=== PATIENT | female | born 1940 | race Caucasian/White ===

== ENCOUNTER 2017-03-24 14:31 | Emergency (ER) | payer MEDICARE ==
[2017-03-24] MEDS ORDERED: Tylenol #3 Tablet PO ONE (16:38)
[2017-03-24] MEDS ORDERED: Tylenol #3 Tablet ONE (16:43)
--- NOTE | 2017-03-24 16:49 | ERPHSYRPT ---
- History of Present Illness Time Seen by Provider: 03/24/17 16:30 Source: patient Exam Limitations: clinical condition Patient Subjective Stated Complaint: shoulder pain in left shoulder Triage Nursing Assessment: patient states she woke up two days ago with mild shoulder pain this morning it had doubled and she doesnt remember a fall of any kind. no abnormalities noted patient able to move left arm and pulses present bilateral upper extremities Physician History: PATIENT WITH HISTORY OF DEPRESSION AND TYPE 2 DIABETES COMPLAINS OF LEFT SHOULDER PAIN FOR 24 HOURS, WORSE UPON RANGE OF MOTION. DENIES TRAUMA OR INJURY. Occurred: yesterday Method of Injury: unknown Quality: constant Severity of Pain-Max: moderate Severity of Pain-Current: moderate Extremities Pain Location: shoulder: left Modifying Factors: Improves With: movement Associated Symptoms: none Allergies/Adverse Reactions: codeine Allergy (Verified 03/24/17 16:44) Sulfa (Sulfonamide Antibiotics) Allergy (Verified 06/29/16 03:39) Home Medications: Gabapentin 100 mg PO TID 03/24/17 [History] Metformin HCl 500 mg [Glucophage 500 MG] 500 mg PO 03/24/17 [History] Olanzapine Odt 5 mg [Zyprexa Zydis 5 MG] 5 mg PO HS 03/24/17 [History] Hx Tetanus, Diphtheria Vaccination/Date Given: Yes Hx Influenza Vaccination/Date Given: Yes Hx Pneumococcal Vaccination/Date Given: Yes Immunizations Up to Date: Yes - Review of Systems Constitutional: No Fever, No Chills Eyes: No Symptoms Ears, Nose, & Throat: No Symptoms Respiratory: No Symptoms, No Cough, No Dyspnea Cardiac: No Symptoms, No Chest Pain, No Edema, No Syncope Abdominal/Gastrointestinal: No Abdominal Pain, No Nausea, No Vomiting, No Diarrhea Genitourinary Symptoms: No Dysuria Musculoskeletal: Joint Pain, No Back Pain, No Neck Pain Skin: No Symptoms, No Rash Neurological: No Dizziness, No Focal Weakness, No Sensory Changes Psychological: No Symptoms Endocrine: No Symptoms All Other Systems: Reviewed and Negative - Past Medical History Pertinent Past Medical History: Yes Neurological History: Alzheimer's Disease, Dementia, Peripheral Neuropathy, Stroke Cardiac History: Hypertension, Myocardial Infarction ([place]) Respiratory History: No Pertinent History Endocrine Medical History: Diabetes Type II Musculoskeletal History: Arthritis GI Medical History: Hemorrhoids History: No Pertinent History Psycho-Social History: Anxiety, Depression Female Reproductive Disorders: No Pertinent History - Past Surgical History Past Surgical History: Yes Neuro Surgical History: No Pertinent History Cardiac: No Pertinent History Respiratory: No Pertinent History Gastrointestinal: Bowel Surgery, Cholecystectomy Musculoskeletal: Joint Replacement Other Surgical History: pt is poor historian about surgeries; bilat. knee replacements - Social History Smoking Status: Never smoker Exposure to second hand smoke: No Drug Use: none Patient Lives Alone: (unknown) - Nursing Vital Signs Nursing Vital Signs: Initial Vital Signs Temperature 97.7 F Temperature Source Oral Pulse Rate 70 Respiratory Rate 18 Blood Pressure [Right Arm] 151/81 Pain Intensity 5 - Physical Exam General Appearance: alert Eyes, Ears, Nose, Throat Exam: moist mucous membranes Neck Exam: non-tender, supple Cardiovascular/Respiratory Exam: chest non-tender, normal breath sounds, regular rate/rhythm, no respiratory distress Abdominal Exam: non-tender, No guarding Back Exam: normal inspection, No vertebral tenderness Shoulder Exam: normal inspection, limited ROM, soft tissue tenderness (NO SWELLING OR DEFORMITY, LEFT RADIAL PULSE 2+) DTR - Upper Extremity Exam: bicep (R): 2+, bicep (L): 2+, tricep (R): 2+, tricep (L): 2+ Neuro/Tendon Exam: normal sensation, normal motor functions Mental Status Exam: alert, oriented x 3, cooperative Skin Exam: normal color, warm, dry SpO2 Interpretation: normal SpO2: 97 Oxygen Delivery: Room Air - Radiology Exams Left Shoulder X-ray Interpretation: Interpreted by me, Negative, No Fracture (NO DISLOCATION, DEGENERATIVE ARTHRITIS) Ordered Tests: Active Orders 24 hr Category Date Time Status ACCUCHECK [Accucheck] STAT Care 03/24/17 16:20 Active Sling Application STAT Care 03/24/17 17:56 Ordered SHOULDER Stat Exams 03/24/17 16:40 Taken BMP Stat Lab 03/24/17 16:50 Completed CBC W DIFF Stat Lab 03/24/17 16:50 Completed UA W/RFX UR CULTURE Stat Lab 03/24/17 17:35 Completed Medication Summary Discontinued Medications Generic Name Dose Route Start Last Admin Trade Name Freq PRN Reason Stop Dose Admin Acetaminophen 650 mg 03/24/17 17:41 03/24/17 17:44 Tylenol 325 Mg PO 03/24/17 17:42 650 mg STAT STA Administration Acetaminophen Confirm 03/24/17 17:43 Tylenol 325 Mg Administered 03/24/17 17:44 Dose 650 mg .ROUTE .STK-MED ONE Acetaminophen/Codeine Phosphate 1 tab 03/24/17 16:38 03/24/17 17:45 Tylenol #3 Tablet PO 03/24/17 16:39 Not Given STAT ONE Acetaminophen/Codeine Phosphate Confirm 03/24/17 16:43 Tylenol #3 Tablet Administered 03/24/17 16:44 Dose 1 tab .ROUTE .STK-MED ONE Lab/Rad Data: Laboratory Result Diagrams 03/24/17 16:50 03/24/17 16:50 Laboratory Results 03/24/17 03/24/17 03/24/17 Range/Units 17:35 16:50 16:50 WBC 8.5 (4.0-10.5) K/mm3 RBC 4.96 (4.1-5.4) M/mm3 Hgb 14.1 (12.0-16.0) gm/dl Hct 41.9 (35-47) % MCV 84.5 (78-100) fl MCH 28.4 (26-32) pg MCHC 33.7 (32-36) g/dl RDW 14.1 H (11.5-14.0) % Plt Count 190 (150-450) K/mm3 MPV 11.9 H (6-9.5) fl Gran % 77.7 H (36.0-66.0) % Lymphocytes % 16.5 L (24.0-44.0) % Monocytes % 5.0 (0.0-12.0) % Eosinophils % 0.6 (0.00-5.0) % Basophils % 0.2 (0.0-0.4) % Basophils # 0.02 (0-0.4) Sodium 138 (136-145) mEq/L Potassium 3.9 (3.5-5.1) mEq/L Chloride 103 (98-107) mEq/L Carbon Dioxide 26.5 (21-32) mEq/L Anion Gap 12.5 (5-15) MEQ/L BUN 14 (9-20) mg/dL Creatinine 0.86 (0.55-1.30) mg/dl Estimated GFR > 60 ML/MIN Glucose 351 H (70-110) MG/DL Calcium 9.9 (8.5-10.1) mg/dL Ur Collection Type CLEAN CATCH Urine Color YELLOW (YELLOW) Urine Appearance CLEAR (CLEAR) Urine pH 5.0 (5-6) Ur Specific [place] 1.020 (1.005-1.025) Urine Protein NEGATIVE (Negative) Urine Glucose (UA) 500 (NEGATIVE) mg/dL Urine Ketones NEGATIVE (NEGATIVE) Urine Nitrite NEGATIVE (NEGATIVE) Urine Bilirubin NEGATIVE (NEGATIVE) Urine Urobilinogen 0.2 (0-1) mg/dL Urine WBC (Auto) NEGATIVE (NEGATIVE) Urine RBC (Auto) NEGATIVE (0-5) Francisco/ul Specimen Received [id number] - Progress Progress Note: 03/24/17 18:00 PATIENT GIVEN TYLENOL 650MG ORALLY, PROVIDED WITH LEFT ARM SLING Counseled pt/family regarding: lab results, diagnosis - Departure Time of Disposition: 18:10 Departure Disposition: Home Clinical Impression: LEFT SHOULDER PAIN, HYPERGLYCEMIA Condition: Stable Critical Care Time: No Additional Instructions: WEAR SHOULDER SLING FOR COMFORT, REMOVE AFTER 4 DAYS. TORADOL 10 MG EVERY 8 HOURS NEEDED FOR PAIN. FOLLOWUP WITH YOUR FAMILY PHYSICIAN IN 1 WEEK. Prescriptions: Ketorolac Tromethamine [Toradol] 10 mg PO Q8HPRN PRN #20 tablet PRN Reason: Pain
[2017-03-24 17:11] LABS: BASOPHIL % 0.2 % (0.0-0.4); Eosinophil % 0.6 % (0.00-5.0); Granulocytes % 77.7 % (36.0-66.0); Lymphocytes % 16.5 % (24.0-44.0); Mean Cell Volume 84.5 fl (78-100); Mean Corpuscular Hemoglobin 28.4 pg (26-32); Mean Platelet Volume 11.9 fl (6-9.5); Platelet Count 190 K/mm3 (150-450); Red Blood Count 4.96 M/mm3 (4.1-5.4); Red Cell Distribution Width 14.1 % (11.5-14.0); White Blood Count 8.5 K/mm3 (4.0-10.5)
[2017-03-24 17:34] LABS: ANION GAP 12.5 MEQ/L (5-15); BLOOD UREA NITROGEN 14 mg/dL (9-20); CHLORIDE 103 mEq/L (98-107); Carbon Dioxide 26.5 mEq/L (21-32); Glucose 351 MG/DL (70-110); Potassium 3.9 mEq/L (3.5-5.1); SODIUM 138 mEq/L (136-145)
[2017-03-24 17:38] LABS: Collection Type CLEAN CATCH
[2017-03-24 17:39] LABS: ADD URINE CULTURE? NO (NO); COMPLETE URINE MICROSCOPIC? NO
[2017-03-24] MEDS ORDERED: TYLENOL 325 MG PO STA (17:41)
[2017-03-24] MEDS ORDERED: TYLENOL 325 MG ONE (17:43)
[2017-03-24 18:02] VITALS: O2SAT 97
[2017-03-24 18:09] VITALS: BP 161/80; PULSE 75
--- NOTE | 2017-03-25 10:16 | XRAY ---
Exam: 3 view left shoulder series from 03/24/2017. Comparison: None. Indication: Patient woke up this morning with left shoulder pain, no known injury. Findings: AP internal rotation, AP external rotation, and Y views of left shoulder were obtained. I see no acute fracture or dislocation. Mild hypertrophic degenerative change at the superior lateral cortical margin of the left humeral head is seen. No abnormal periarticular soft tissue calcifications are seen. The left acromioclavicular joint space appears unremarkable. There is some minimal hypertrophic degenerative change on each side of the left acromioclavicular joint space. No other focal bone lesion is seen. Impression: 1. No acute fracture or dislocation of the left shoulder is seen. 2. Mild degenerative changes of the left shoulder, as described above, are seen.
== END 2017-03-24 18:17 | disposition home or self-care (01) ==
LOC: ED 14:31
DX: M25.512 Pain in left shoulder (principal); R73.9 Hyperglycemia, unspecified; F32.9 Major depressive disorder, single episode, unspecified; E11.9 Type 2 diabetes mellitus without complications
CPT/HCPCS: 36415; 73030; 80048; 81002; 82962; 85025; 99284; A9270-GY

== ENCOUNTER 2017-06-15 05:40 | Day surgery (SDC) | payer MEDICARE | END 2017-06-15 06:45 | disposition home or self-care (01) | LOC: SDC 05:40 | PROVIDERS: ATTEND Family Medicine | DX: Z53.9 Procedure and treatment not carried out, unspecified reason (principal) ==

== ENCOUNTER 2017-07-17 05:41 | Day surgery (SDC) | payer MEDICARE ==
[2017-07-17] MEDS ORDERED: Ketamine HCl 50 MG/ML IJ ONE (05:42)
[2017-07-17] MEDS ORDERED: DIPRIVAN 200 MG/20 ML IV ONE (05:42)
[2017-07-17] MEDS ORDERED: Lactated Ringers 1,000 ML IV SCH (06:30)
[2017-07-17 09:01] VITALS: BP 149/91; PULSE 62; O2SAT 98
--- NOTE | 2017-07-17 09:23 | OP ---
SURGERY DATE/TIME: 07/17/2017 0725 PREOPERATIVE DIAGNOSES: 1) Abdominal pain. 2) Rectal bleeding. POSTOPERATIVE DIAGNOSES: 1) Gastritis 2) Normal colon. PROCEDURES: 1) Esophagogastroduodenoscopy with biopsy. 2) Colonoscopy. SURGEON: Dr. Torres. ANESTHESIA: Medications were given by the anesthesia department. BRIEF HISTORY: The patient is a 77 year old white female who complains of several months of abdominal pain. She also reports she is having occasional rectal bleeding. She has never had a colon examination performed previously. The patient does take naproxen on a regular basis. The patient is on omeprazole as well. She was felt the need to have endoscopic evaluation. She was appraised of the risks of the procedure including the risk of perforation, phlebitis, untoward reaction to medication, bleeding and missed lesions. The patient verbalized her understanding and desired to have the procedure performed. DESCRIPTION OF PROCEDURE: The patient was given the medications by the anesthesia department. She had continuous pulse oximetry, ECG monitoring, intermittent blood pressure monitoring and tidal CO2 monitoring during the examination. She was placed in the left lateral decubitus position. A bite block was placed and the flexible Olympus gastroscope was used to intubate the oropharynx. A view of the larynx was obtained and was normal. The scope was easily introduced in the esophagus which appeared to be normal throughout its length. The stomach was entered where normal gastric rugal folds were seen and these distended nicely with insufflation of air. The scope was passed along the greater curvature of the stomach to the antrum. The pylorus is encountered and intubated. The duodenum inspected and found to be normal. The scope was withdrawn towards the stomach. Again, a retroflex view was obtained of the lesser curvature, fundus and cardia regions of the stomach and these appeared to be essentially normal. The scope was then redirected towards the gastric antrum and biopsies were obtained to rule out the presence of Helicobacter pylori-type organisms. The scope was then removed from the patient. Next, a digital rectal examination was performed and revealed normal anal sphincter tone and no masses. The flexible Olympus pediatric colonoscope was used to intubate the rectum. A view of the colon was developed sequentially to the cecum. Upon insertion and withdrawal, including a retroflex view in the rectum, no mucosal lesions were encountered. The scope was removed from the patient who tolerated the procedure well and was sent back to OP recovery in good condition. The prep was noted to be good.
== END 2017-07-17 09:16 | disposition home or self-care (01) ==
LOC: SDC 05:41
PROVIDERS: ATTEND Family Medicine
PROC: 0DB78ZX Excision of Stomach, Pylorus, Via Natural or Artificial Opening Endoscopic, Diagnostic (ICD-10-PCS; principal; 2017-07-17)
PROC: 0DJD8ZZ Inspection of Lower Intestinal Tract, Via Natural or Artificial Opening Endoscopic (ICD-10-PCS; 2017-07-17)
DX: K29.70 Gastritis, unspecified, without bleeding (principal); K62.5 Hemorrhage of anus and rectum
CPT/HCPCS: 00740; 00810; 36415; 82962; 88305; 99100; J2704

== ENCOUNTER 2018-07-04 11:40 | Emergency (ER) | payer MEDICARE ==
[2018-07-04 12:36] LABS: BASOPHIL % 0.2 % (0.0-0.4); Basophil (Absolute #) 0.01 (0-0.4); Eosinophil % 0.4 % (0.00-5.0); Eosinophil (Absolute #) 0.02 (0-0.5); Granulocyte Absolute (ANC) 3.75 (1.4-6.9); Granulocytes % 70.2 % (36.0-66.0); Hemoglobin 13.6 gm/dl (12.0-16.0); Lymphocyte (Absolute #) 1.31 (1.0-4.6); Lymphocytes % 24.5 % (24.0-44.0); Mean Cell Volume 85.8 fl (78-100); Mean Corpuscular Hemoglobin 28.5 pg (26-32); Mean Corpuscular Hgb Concent. 33.2 g/dl (32-36); Mean Platelet Volume 11.5 fl (6-9.5); Monocyte (Absolute #) 0.25 (0.0-1.3); Monocytes % 4.7 % (0.0-12.0); Platelet Count 227 K/mm3 (150-450); Red Blood Count 4.78 M/mm3 (4.1-5.4); Red Cell Distribution Width 14.1 % (11.5-14.0); White Blood Count 5.3 K/mm3 (4.0-10.5)
--- NOTE | 2018-07-04 12:36 | ERPHSYRPT ---
- History of Present Illness Time Seen by Provider: 07/04/18 12:20 Source: patient, family Exam Limitations: no limitations Patient Subjective Stated Complaint: Pt states "My head hurts really bad, my jaws hurt, my belly hurts. I am sick." Triage Nursing Assessment: Pt alert and oriented X 3, skin pwd. PT smiling, pleasant, ambulates with an upright steady gait, able to speak in full complete sentences. no apparent respiratory distress. Physician History: 78 y/o female with multiple medical issues comes to the ER with complaints of headache, confusion, lower abdominal discomfort and just "not feeling well" that started over the past couple of days. Pt also reports having chronic issues including chest pain, balance issues and diarrhea. Of note, patient's glucose was 278. Pt last had right and left sided chest pain 2 weeks ago. Timing/Duration: day(s) Quality: aching Head Pain Location: global Severity of Pain-Max: moderate Severity of Pain-Current: mild Recent Head Trauma: no recent headache/trauma Associated Symptoms: confusion, weakness, No sensitive to light, No speech problems Previous symptoms: no prior history Allergies/Adverse Reactions: codeine Allergy (Verified 10/21/17 18:47) Sulfa (Sulfonamide Antibiotics) Allergy (Verified 10/21/17 18:47) Home Medications: Gabapentin 300 mg PO TID 03/24/17 [History] Metformin HCl 500 mg [Glucophage 500 MG] 500 mg PO BID 03/24/17 [History] Olanzapine Odt 5 mg [Zyprexa Zydis 5 MG] 5 mg PO HS 03/24/17 [History] Atorvastatin Calcium 10 mg PO DAILY 06/09/17 [History] Fluoxetine HCl [Prozac] 20 mg PO DAILY 06/09/17 [History] Insulin Glargine [Lantus Insulin] 100 unit SQ HS 06/09/17 [History] Donepezil HCl 5 mg PO DAILY 07/04/18 [History] Meloxicam 7.5 mg PO DAILY 07/04/18 [History] Hx Tetanus, Diphtheria Vaccination/Date Given: No Hx Influenza Vaccination/Date Given: Yes Hx Pneumococcal Vaccination/Date Given: Yes Immunizations Up to Date: Yes - Review of Systems Constitutional: Weakness, No Fever, No Chills Eyes: No Symptoms Ears, Nose, & Throat: No Symptoms Respiratory: No Cough, No Dyspnea Cardiac: Chest Pain, No Edema, No Syncope Abdominal/Gastrointestinal: Abdominal Pain, No Nausea, No Vomiting, No Diarrhea Genitourinary Symptoms: No Dysuria, No Frequency, No Hematuria Musculoskeletal: Myalgias, No Back Pain, No Neck Pain Skin: No Rash Neurological: No Dizziness, No Focal Weakness, No Sensory Changes Psychological: No Symptoms Endocrine: No Symptoms All Other Systems: Reviewed and Negative - Past Medical History Pertinent Past Medical History: Yes Neurological History: Alzheimer's Disease, Dementia, Peripheral Neuropathy, Stroke ENT History: No Pertinent History Cardiac History: Hypertension, Myocardial Infarction ([place]) Respiratory History: No Pertinent History Endocrine Medical History: Diabetes Type II Musculoskeletal History: Arthritis GI Medical History: Hemorrhoids History: Other Psycho-Social History: Anxiety, Depression Female Reproductive Disorders: No Pertinent History Other Medical History: Depression with pyschosis. Bladder problems - Past Surgical History Past Surgical History: Yes Neuro Surgical History: No Pertinent History Cardiac: No Pertinent History Respiratory: No Pertinent History Gastrointestinal: Bowel Surgery, Cholecystectomy Genitourinary: No Pertinent History Musculoskeletal: Joint Replacement Female Surgical History: No Pertinent History Other Surgical History: pt is poor historian about surgeries; bilat. knee replacements - Social History Smoking Status: Never smoker Exposure to second hand smoke: No Drug Use: none Patient Lives Alone: Yes - Female History Hx Now: No - Nursing Vital Signs Nursing Vital Signs: Initial Vital Signs Temperature 99.3 F 07/04/18 11:50 Pulse Rate 72 07/04/18 11:50 Respiratory Rate 18 07/04/18 11:50 Blood Pressure 173/68 07/04/18 11:50 O2 Sat by Pulse Oximetry 97 07/04/18 11:50 Pain Scale Pain Intensity 0 - Physical Exam General Appearance: no apparent distress Eye Exam: PERRL/EOMI Ears, Nose, Throat Exam: normal ENT inspection, moist mucous membranes Neck Exam: normal inspection, supple, full range of motion, No meningismus Respiratory Exam: normal breath sounds, lungs clear Cardiovascular Exam: regular rate/rhythm, normal heart sounds, normal peripheral pulses Gastrointestinal/Abdominal Exam: soft, No tenderness, No distention Back Exam: normal inspection, normal range of motion Extremity Exam: normal inspection, normal range of motion Mental Status Exam: alert, oriented x 3, cooperative ios architect Exam: normal speech, PERRL, No facial droop Coordination/Gait Exam: normal cerebellar function Motor/Sensory Exam: no motor deficit, no sensory deficit Skin Exam: normal color, warm, dry, No rash SpO2: 97 Oxygen Delivery: Room Air - Course Nursing assessment & vital signs reviewed: Yes EKG Interpreted by Me: RATE, NORMAL AXIS, NORMAL INTERVALS, NORMAL QRS, NORMAL ST-T Ordered Tests: Active Orders 24 hr Category Date Time Status ACCUCHECK [Accucheck] STAT Care 07/04/18 12:58 Active Felt Machine Mechanic STAT Care 07/04/18 12:29 Active EKG-ER Only STAT Care 07/04/18 12:29 Active IV Insertion STAT Care 07/04/18 12:29 Active ABDOMEN 2 VIEW Stat Exams 07/04/18 13:37 Taken CHEST 1 VIEW (PORTABLE) Stat Exams 07/04/18 12:29 Taken HEAD WITHOUT CONTRAST [CT] Stat Exams 07/04/18 12:30 Taken CBC W DIFF Stat Lab 07/04/18 12:00 Completed CK-Creatinine Phosphokinase Stat Lab 07/04/18 12:00 Completed CMP Stat Lab 07/04/18 12:00 Completed NT PRO BNP Stat Lab 07/04/18 12:00 Completed TROPONIN Q3H Lab 07/04/18 12:00 Completed TROPONIN Q3H Lab 07/04/18 15:30 Ordered TROPONIN Q3H Lab 07/04/18 18:30 Ordered TROPONIN Q3H Lab 07/04/18 21:30 Ordered TROPONIN Q3H Lab 07/05/18 00:30 Ordered UA W/ MICROSCOPIC Stat Lab 07/04/18 12:50 Completed Medication Summary Generic Name Dose Route Start Last Admin Trade Name Freq PRN Reason Stop Dose Admin Sodium Chloride 1,000 mls @ 999 mls/hr 07/04/18 13:40 07/04/18 13:49 Sodium Chloride 0.9% 1000 Ml IV 07/04/18 14:40 999 mls/hr .Q1H1M STA Administration Discontinued Medications Generic Name Dose Route Start Last Admin Trade Name Freq PRN Reason Stop Dose Admin Sodium Chloride Confirm 07/04/18 13:42 Sodium Chloride 0.9% 1000 Ml Administered 07/04/18 13:43 Dose 1,000 mls @ ud .ROUTE .STK-MED ONE Simethicone 80 mg 07/04/18 13:53 07/04/18 14:07 Mylicon 80mg PO 07/04/18 13:54 80 mg ONCE ONE Administration Lab/Rad Data: Laboratory Result Diagrams 07/04/18 12:00 07/04/18 12:00 Laboratory Results 07/04/18 07/04/18 07/04/18 Range/Units 12:50 12:00 12:00 WBC (4.0-10.5) K/mm3 RBC (4.1-5.4) M/mm3 Hgb (12.0-16.0) gm/dl Hct (35-47) % MCV (78-100) fl MCH (26-32) pg MCHC (32-36) g/dl RDW (11.5-14.0) % Plt Count (150-450) K/mm3 MPV (6-9.5) fl Gran % (36.0-66.0) % Eos # (Auto) (0-0.5) Absolute Lymphs (auto) (1.0-4.6) Absolute Monos (auto) (0.0-1.3) Lymphocytes % (24.0-44.0) % Monocytes % (0.0-12.0) % Eosinophils % (0.00-5.0) % Basophils % (0.0-0.4) % Absolute Granulocytes (1.4-6.9) Basophils # (0-0.4) Sodium 139 (137-145) mmol/L Potassium 4.1 (3.5-5.1) mmol/L Chloride 102 (98-107) mmol/L Carbon Dioxide 26 (22-30) mmol/L Anion Gap 15.3 H (5-15) MEQ/L BUN 20 H (7-17) mg/dL Creatinine 0.51 L (0.52-1.04) mg/dL Estimated GFR > 60.0 ML/MIN Glucose 259 H (74-106) mg/dL Calcium 9.5 (8.4-10.2) mg/dL Total Bilirubin 0.50 (0.2-1.3) mg/dL AST 24 (14-36) U/L ALT 23 (0-35) U/L Alkaline Phosphatase 40 (38-126) U/L Creatine Kinase 308 H (30-135) U/L Troponin I < 0.012 (0.000-0.034) ng/mL NT-Pro-B Natriuret Pep 240 (0-1800) pg/mL Serum Total Protein 7.5 (6.3-8.2) g/dL Albumin 4.7 (3.5-5.0) g/dL Ur Collection Type CLEAN CATCH Urine Color YELLOW (YELLOW) Urine Appearance CLEAR (CLEAR) Urine pH 5.5 (5-6) Ur Specific [place] 1.020 (1.005-1.025) Urine Protein NEGATIVE (Negative) Urine Ketones NEGATIVE (NEGATIVE) Urine Blood NEGATIVE (0-5) Francisco/ul Urine Nitrite NEGATIVE (NEGATIVE) Urine Bilirubin NEGATIVE (NEGATIVE) Urine Urobilinogen NORMAL (0-1) mg/dL Ur Leukocyte Esterase TRACE (NEGATIVE) Urine Microscopic WBC 0-2 (0-5) /HPF Ur Epithelial Cells RARE (FEW) /HPF Urine Bacteria RARE (NEGATIVE) /HPF Urine Culture Reflexed NO (NO) Urine Glucose NEGATIVE (NEGATIVE) mg/dL Specimen Received 07/04/18 1230 07/04/18 Range/Units 12:00 WBC 5.3 (4.0-10.5) K/mm3 RBC 4.78 (4.1-5.4) M/mm3 Hgb 13.6 (12.0-16.0) gm/dl Hct 41.0 (35-47) % MCV 85.8 (78-100) fl MCH 28.5 (26-32) pg MCHC 33.2 (32-36) g/dl RDW 14.1 H (11.5-14.0) % Plt Count 227 (150-450) K/mm3 MPV 11.5 H (6-9.5) fl Gran % 70.2 H (36.0-66.0) % Eos # (Auto) 0.02 (0-0.5) Absolute Lymphs (auto) 1.31 (1.0-4.6) Absolute Monos (auto) 0.25 (0.0-1.3) Lymphocytes % 24.5 (24.0-44.0) % Monocytes % 4.7 (0.0-12.0) % Eosinophils % 0.4 (0.00-5.0) % Basophils % 0.2 (0.0-0.4) % Absolute Granulocytes 3.75 (1.4-6.9) Basophils # 0.01 (0-0.4) Sodium (137-145) mmol/L Potassium (3.5-5.1) mmol/L Chloride (98-107) mmol/L Carbon Dioxide (22-30) mmol/L Anion Gap (5-15) MEQ/L BUN (7-17) mg/dL Creatinine (0.52-1.04) mg/dL Estimated GFR ML/MIN Glucose (74-106) mg/dL Calcium (8.4-10.2) mg/dL Total Bilirubin (0.2-1.3) mg/dL AST (14-36) U/L ALT (0-35) U/L Alkaline Phosphatase (38-126) U/L Creatine Kinase (30-135) U/L Troponin I (0.000-0.034) ng/mL NT-Pro-B Natriuret Pep (0-1800) pg/mL Serum Total Protein (6.3-8.2) g/dL Albumin (3.5-5.0) g/dL Ur Collection Type Urine Color (YELLOW) Urine Appearance (CLEAR) Urine pH (5-6) Ur Specific [place] (1.005-1.025) Urine Protein (Negative) Urine Ketones (NEGATIVE) Urine Blood (0-5) Francisco/ul Urine Nitrite (NEGATIVE) Urine Bilirubin (NEGATIVE) Urine Urobilinogen (0-1) mg/dL Ur Leukocyte Esterase (NEGATIVE) Urine Microscopic WBC (0-5) /HPF Ur Epithelial Cells (FEW) /HPF Urine Bacteria (NEGATIVE) /HPF Urine Culture Reflexed (NO) Urine Glucose (NEGATIVE) mg/dL Specimen Received - Progress Progress: improved Progress Note: 07/04/18 13:[address] scan head is within normal limits. The CXR and abdominal x ray does not show any acute findings. The patient has a blood glucose of 269 and will receive a liter of normal saline. Otherwise, the rest of the blood work, including troponin and UA are within normal limits. Pt will F/U with her primary care doctor. - Departure Time of Disposition: 14:22 Departure Disposition: Home Clinical Impression: Hyperglycemia, Dehydration Headache Qualifiers: Headache type: unspecified Headache chronicity pattern: episodic headache Intractability: not intractable Qualified Code(s): R51 - Headache Condition: Stable Critical Care Time: No Referrals: XOCHITL VILLANUEVA [Primary Care Provider] - Instructions: Headache, Adult (DC), Hyperglycemia, Adult (DC), Dehydration, Adult (DC) Additional Instructions: Follow up with your primary care doctor for any additional recommendations.
[2018-07-04 12:48] LABS: ALBUMIN 4.7 g/dL (3.5-5.0); ALKALINE PHOSPHATASE 40 U/L (38-126); ANION GAP 15.3 MEQ/L (5-15); BLOOD UREA NITROGEN 20 mg/dL (7-17); CHLORIDE 102 mmol/L (98-107); CK-Creatinine Phosphokinase 308 U/L (30-135); Calcium 9.5 mg/dL (8.4-10.2); Carbon Dioxide 26 mmol/L (22-30); Creatinine 1 0.51 mg/dL (0.52-1.04); Glucose 259 mg/dL (74-106); NT PRO BNP 240 pg/mL (0-1800); Potassium 4.1 mmol/L (3.5-5.1); SGOT/AST 24 U/L (14-36); SGPT/ALT 23 U/L (0-35); SODIUM 139 mmol/L (137-145); Total Protein 7.5 g/dL (6.3-8.2)
[2018-07-04 13:00] LABS: Appearance CLEAR (CLEAR)
[2018-07-04 13:01] LABS: Bilirubin NEGATIVE (NEGATIVE); Blood NEGATIVE Ery/ul (0-5); Glucose NEGATIVE (NEGATIVE); Ketones NEGATIVE (NEGATIVE); Leukocyte Esterase TRACE (NEGATIVE); Nitrite NEGATIVE (NEGATIVE); Ph 5.5 (5-6); Protein,Urine Dip NEGATIVE (Negative); Urobilinogen NORMAL mg/dL (0-1)
[2018-07-04 13:03] LABS: Bacteria RARE /HPF (NEGATIVE); Epithelial Cells RARE /HPF (FEW); WBC 0-2 /HPF (0-5)
[2018-07-04] MEDS ORDERED: Sodium Chloride 0.9% 1000 ML 1,000 ML IV STA (13:40)
[2018-07-04] MEDS ORDERED: Sodium Chloride 0.9% 1000 ML 1,000 ML ONE (13:42)
[2018-07-04] MEDS ORDERED: Mylicon 80MG PO ONE (13:53)
[2018-07-04 14:58] VITALS: BP 129/61; PULSE 90; O2SAT 96
--- NOTE | 2018-07-04 20:11 | XRAY ---
Indication: Headache and nausea 3-4 months. Multiple contiguous axial images obtained through the head without contrast. Comparison: October 21, 2017. Stable age-appropriate global atrophy, mild periventricular degenerative micro-ischemia, and anatomic variant for cavum septum pellucidum. No acute intracranial hemorrhage, abnormal extra-axial fluid collection, or mass effect. Fourth ventricle is midline. Bony calvarium intact again with hyperostosis frontalis interna. Visualized paranasal sinuses and mastoid air cells are clear. Impression: Stable nonacute senile brain. Comment: Preliminary interpretation was made by [facility]. No discrepancy. CTDI 67.80
--- NOTE | 2018-07-04 20:13 | XRAY ---
Indication: Nausea, short of breath, and headache. Comparison: None 2 views of the abdomen nonacute and nonobstructed. Solid organs unremarkable. Osseous structures intact with multilevel degenerative spondylosis and left lower back spinal stimulator device/lead. Impression: Negative abdomen.
--- NOTE | 2018-07-04 20:13 | XRAY ---
Indication: Short of breath, headache, and nausea. Comparison: None Portable chest demonstrates minimal left base fibrosis/scarring. No focal infiltrate, consolidation, or large effusion. Heart and mediastinal structures within normal limits. Bony thorax intact with mild degenerative changes. Impression: Nonacute chest with chronic features.
== END 2018-07-04 14:58 | disposition home or self-care (01) ==
LOC: ED 11:40
DX: E11.65 Type 2 diabetes mellitus with hyperglycemia (principal); E86.0 Dehydration; R51 Headache; R10.30 Lower abdominal pain, unspecified; R41.0 Disorientation, unspecified; Z79.899 Other long term (current) drug therapy; Z79.84 Long term (current) use of oral hypoglycemic drugs; R07.9 Chest pain, unspecified
CPT/HCPCS: 36000; 36415; 70450; 71045; 74021; 80053; 81000; 82550; 82962; 83880; 84484; 85025; 93005; 93041; 96360; 99284; A9270-GY

== ENCOUNTER 2020-06-10 16:38 | Emergency (ER) | payer MEDICARE ==
[2020-06-10 17:23] LABS: Appearance CLEAR (CLEAR); Bilirubin NEGATIVE (NEGATIVE); Blood SMALL Ery/ul (0-5); Glucose >=500 mg/dL (NEGATIVE); Ketones NEGATIVE (NEGATIVE); Leukocyte Esterase NEGATIVE (NEGATIVE); Nitrite NEGATIVE (NEGATIVE); Protein,Urine Dip NEGATIVE (Negative); Specific Gravity 1.018 (1.005-1.025); Urobilinogen NEGATIVE mg/dL (0-1)
--- NOTE | 2020-06-10 17:38 | ERPHSYRPT ---
- History of Present Illness Time Seen by Provider: 06/10/20 17:34 Source: patient Exam Limitations: no limitations Patient Subjective Stated Complaint: fall Triage Nursing Assessment: pt to ED by EMS after fall at some time today. [place]x [place]5 miles from her home. pt lives alone and reports she feels safe there. pt has hx dementia. currently alert but only oriented to self. noted deformity to nose and bleeding on arrival. dressed with bandaige from EMS. + LOC on fall, denies blood thinners Physician History: pt was [place] face first [place] railroad track approx 1.5 miles from her home. pt lives alone and reports she feels safe there. pt has hx dementia. currently alert but only oriented to self. noted deformity to nose and bleeding on arrival. dressed with band aid from EMS. Possible Loss of consciousness on fall, denies blood thinners. Occurred: just prior to arrival Reason for Fall: fainted Injuries/Pain Location: head, face Loss of Consciousness: brief (seconds) Severity of Pain-Max: mild Severity of Pain-Current: mild Modifying Factors: Improves With: nothing Associated Symptoms (Fall): denies symptoms Allergies/Adverse Reactions: codeine Allergy (Verified 10/21/17 18:47) Sulfa (Sulfonamide Antibiotics) Allergy (Verified 10/21/17 18:47) Home Medications: Gabapentin 300 mg PO TID 03/24/17 [History] Metformin HCl 500 mg [Glucophage 500 MG] 500 mg PO BID 03/24/17 [History] Olanzapine Odt 5 mg [Zyprexa Zydis 5 MG] 5 mg PO HS 03/24/17 [History] Atorvastatin Calcium 10 mg PO DAILY 06/09/17 [History] Fluoxetine HCl [Prozac] 20 mg PO DAILY 06/09/17 [History] Insulin Glargine [Lantus Insulin] 100 unit SQ HS 06/09/17 [History] Donepezil HCl 5 mg PO DAILY 07/04/18 [History] Meloxicam 7.5 mg PO DAILY 07/04/18 [History] Hx Tetanus, Diphtheria Vaccination/Date Given: No Hx Influenza Vaccination/Date Given: Yes Hx Pneumococcal Vaccination/Date Given: Yes Travel Risk - International Travel Have you traveled outside of the country in past 3 weeks: No - Coronavirus Screening Are you exhibiting any of the following symptoms?: No Close contact with a COVID-19 positive Pt in past 14-21 Days: No - Review of Systems Constitutional: No Fever, No Chills Eyes: No Symptoms Ears, Nose, & Throat: No Symptoms Respiratory: No Cough, No Dyspnea Cardiac: No Chest Pain, No Edema, No Syncope Abdominal/Gastrointestinal: No Abdominal Pain, No Nausea, No Vomiting, No Diarrhea Genitourinary Symptoms: No Dysuria Musculoskeletal: No Back Pain, No Neck Pain Skin: No Rash Neurological: No Dizziness, No Focal Weakness, No Sensory Changes Psychological: No Symptoms Endocrine: No Symptoms All Other Systems: Reviewed and Negative - Past Medical History Pertinent Past Medical History: Yes Neurological History: Alzheimer's Disease, Dementia, Peripheral Neuropathy, Stroke ENT History: No Pertinent History Cardiac History: Hypertension, Myocardial Infarction ([place]) Respiratory History: No Pertinent History Endocrine Medical History: Diabetes Type II Musculoskeletal History: Arthritis GI Medical History: Hemorrhoids History: Other Psycho-Social History: Anxiety, Depression Female Reproductive Disorders: No Pertinent History Other Medical History: Depression with pyschosis. Bladder problems - Past Surgical History Past Surgical History: Yes Neuro Surgical History: No Pertinent History Cardiac: No Pertinent History Respiratory: No Pertinent History Gastrointestinal: Bowel Surgery, Cholecystectomy Genitourinary: No Pertinent History Musculoskeletal: Joint Replacement Female Surgical History: No Pertinent History Other Surgical History: pt is poor historian about surgeries; bilat. knee replacements - Social History Smoking Status: Never smoker Exposure to second hand smoke: No Drug Use: none Patient Lives Alone: Yes - Nursing Vital Signs Nursing Vital Signs: Initial Vital Signs Temperature 98.2 F 06/10/20 17:36 Pulse Rate 96 H 06/10/20 17:36 Respiratory Rate 18 06/10/20 17:36 Blood Pressure 154/86 06/10/20 17:36 O2 Sat by Pulse Oximetry 96 06/10/20 17:36 Pain Scale Pain Intensity 5 - Kitty Coma Score Best Eye Response (Kitty): (4) open spontaneously Best Verbal Response (Parker): (5) oriented Best Motor Response (Kitty): (6) obeys commands Parker Total: 15 - Physical Exam General Appearance: no apparent distress, alert Head Injury: no evidence of injury Eye Exam: PERRL/EOMI ENT Exam: airway nml Neck Exam: normal inspection, No tenderness Respiratory/Chest Exam: normal breath sounds, No chest tenderness, No respiratory distress Cardiovascular Exam: normal heart sounds, regular rate/rhythm Gastrointestinal Exam: soft, No tenderness, No distention, No guarding, No ecchymosis Back Exam: normal inspection, No vertebral tenderness Extremity Exam: normal inspection, normal range of motion, pelvis stable, No deformities Neurologic Exam: alert, oriented x 3, cooperative, sensation nml, No motor deficits Skin Exam: normal color, warm, dry, other (few abrasion on face, lip, old abrasion on legs, healed scar on left knee) - Course Nursing assessment & vital signs reviewed: Yes - CT Exams Maxillofacial Bones CT Interpretation: Tele-radiologist Report (nasal bone fracture) Cervical Spine CT Interpretation: Tele-radiologist Report, No Fracture Head CT Interpretation: Tele-radiologist Report, No Fracture Ordered Tests: Active Orders 24 hr Category Date Time Status ACCUCHECK [Accucheck] STAT Care 06/10/20 17:11 Active Nuclear Medical Technologist STAT Care 06/10/20 17:10 Active EKG-ER Only STAT Care 06/10/20 17:10 Active Guzmán [Catheter-[place] Guzmán] STAT Care 06/10/20 17:10 Active IV Insertion STAT Care 06/10/20 17:10 Active IV Insertion-2nd Peripheral STAT Care 06/10/20 17:10 Active CERVICAL SPINE WO CONTRAST [CT] Stat Exams 06/10/20 16:45 Taken FACIAL BONES WO CONTRAST [CT] Stat Exams 06/10/20 16:45 Taken HEAD WITHOUT CONTRAST [CT] Stat Exams 06/10/20 16:45 Taken CULTURE,URINE Stat Lab 06/10/20 17:20 Received UA W/RFX UR CULTURE Stat Lab 06/10/20 17:20 Completed Medication Summary Discontinued Medications Generic Name Dose Route Start Last Admin Trade Name Freq PRN Reason Stop Dose Admin Famotidine 20 mg 06/10/20 18:06 06/10/20 18:08 Pepcid 20 Mg Vial IV 06/10/20 18:07 20 mg STAT ONE Administration Famotidine Confirm 06/10/20 18:07 Pepcid 20 Mg Vial Administered 06/10/20 18:08 Dose 20 mg IV .STExactTarget-MED ONE Lab/Rad Data: Laboratory Results 06/10/20 Range/Units 17:20 Urine Color STRAW (YELLOW) Urine Appearance CLEAR (CLEAR) Urine pH 6.0 (5-6) Ur Specific [place] 1.018 (1.005-1.025) Urine Protein NEGATIVE (Negative) Urine Ketones NEGATIVE (NEGATIVE) Urine Blood SMALL (0-5) Francisco/ul Urine Nitrite NEGATIVE (NEGATIVE) Urine Bilirubin NEGATIVE (NEGATIVE) Urine Urobilinogen NEGATIVE (0-1) mg/dL Ur Leukocyte Esterase NEGATIVE (NEGATIVE) Urine WBC (Auto) NONE (0-5) /HPF Urine RBC (Auto) NONE (0-2) /HPF U Epithel Cells (Auto) NONE (FEW) /HPF Urine Bacteria (Auto) NONE (NEGATIVE) /HPF Urine Culture Reflexed ORDERED SEPARATELY (NO) Urine Glucose >=500 (NEGATIVE) mg/dL - Progress Progress: improved Counseled pt/family regarding: lab results, diagnosis, need for follow-up, rad results - Departure Departure Disposition: Home Clinical Impression: Fall from ground level, Closed head injury with brief loss of consciousness Nasal bone fracture Qualifiers: Encounter type: initial encounter Fracture type: closed Qualified Code(s): S02.2XXA - Fracture of nasal bones, initial encounter for closed fracture Contusion Qualifiers: Encounter type: initial encounter Contusion area: head Contusion of head detail: nose Qualified Code(s): S00.33XA - Contusion of nose, initial encounter Condition: Stable Critical Care Time: Yes Critical Care Time(excluding separately billable procedures): Critical 30-74 mins Referrals: DOCTOR,NO FAMILY [Primary Care Provider] - Follow Up with PCP Instructions: Contusion (DC), Preventing Falls, Concussion, Adult (DC), Closed Head Injury (DC) Additional Instructions: 1 is a responsible adult so stay with the patient for next 24 hours. Follow-up on concussion guidelines. Follow-up with your primary care physician in the next 2 to 3 days. If symptoms get worse bring her back to the emergency room.
[2020-06-10] MEDS ORDERED: Pepcid 20 MG VIAL IV ONE ×2 (18:06→18:07)
[2020-06-10 19:38] VITALS: BP 153/92; PULSE 95; O2SAT 98
--- NOTE | 2020-06-10 20:10 | XRAY ---
Indication: Injury following fall. Multiple contiguous axial images obtained through the head without contrast. Comparison: June 06, 2020. Stable age-appropriate global atrophy, mild degenerative micro-ischemia bilaterally, and anatomic variant for cavum septum pellucidum. Again no acute intracranial hemorrhage, abnormal extra-axial fluid collection, or mass effect. Fourth ventricle is midline without hydrocephalus. New small frontal scalp soft tissue swelling. Bony calvarium intact again with hyperostosis frontalis interna. Visualized paranasal sinuses and mastoid air cells are clear. CT facial bones and CT cervical spine reported separately. Impression: Continued nonacute senile brain. Comment: Preliminary interpretation was made by [facility]. No critical discrepancy.
--- NOTE | 2020-06-10 20:14 | XRAY ---
Indication: Injury following fall. Multiple contiguous axial images obtained through the facial bones. Sagittal and coronal reformatted images obtained. Comparison: None. Patient is edentulous. There is comminuted displaced and angulated bilateral nasal bone fractures with overlying soft tissue swelling/laceration. Additional angulated fracture of the anterior nasal septum and nondisplaced fracture tip spine of the maxilla. No other acute fracture, suspicious bony lesions, or radiopaque foreign body. Orbits including roof, olmos, and floors intact. Paranasal sinuses are clear. Remaining visualized noncontrast soft tissues are unremarkable. CT head and CT cervical spine reported separately. Impression: Nasal bone, nasal septum, and maxilla spine fractures as detailed. Comment: Preliminary interpretation was made by [facility]. No critical discrepancy.
--- NOTE | 2020-06-10 20:18 | XRAY ---
Indication: Injury following fall. Multiple contiguous axial images obtained through the cervical spine. Sagittal and coronal reformatted images obtained. Comparison: October 21, 2017. Axial images again negative for acute fracture, suspicious bony lesions, or spinal canal stenosis. There remains mild C5-C7 degenerative endplate spurring and mild multilevel bilateral degenerative facet hypertrophy. Sagittal and coronal reformatted images again demonstrates lordotic straightening, positional versus paraspinal spasm. Stable C5-C7 disc space narrowing. No acute compression fracture, subluxation, or jumped facet. Normal appearing craniocervical junction. Visualized noncontrasted soft tissues again demonstrates left thyroid punctate calcifications and mild carotid calcifications. CT facial bones and CT head reported separately. Impression: 1. Again cervical lordotic straightening, positional versus paraspinal spasm. 2. Negative acute fracture/subluxation. 3. Stable multilevel degenerative changes. Comment: Preliminary interpretation was made by [facility]. No critical discrepancy.
== END 2020-06-10 19:45 | disposition home or self-care (01) ==
LOC: ED 16:38
DX: S06.9X1A Unspecified intracranial injury with loss of consciousness of 30 minutes or less, initial encounter (principal); W18.30XA Fall on same level, unspecified, initial encounter; Y93.9 Activity, unspecified; F03.90 Unspecified dementia, unspecified severity, without behavioral disturbance, psychotic disturbance, mood disturbance, and anxiety; E11.9 Type 2 diabetes mellitus without complications; Z79.899 Other long term (current) drug therapy; I25.2 Old myocardial infarction; S00.511A Abrasion of lip, initial encounter; S02.2XXA Fracture of nasal bones, initial encounter for closed fracture
CPT/HCPCS: 36000; 51702; 70450; 70486; 72125; 81001; 82962; 87086; 93005; 93041; 96374; 99284; 99291